=== PATIENT | female | born 1980 ===

== ENCOUNTER 2018-05-19 06:10 | Inpatient (IN) | payer MEDICAID ==
[2018-05-19 06:41] VITALS: BMI 28.5
[2018-05-19] MEDS ORDERED: Lactated Ringer's 1,000 ML IV ONE (07:45)
[2018-05-19] MEDS ORDERED: Sodium Citrate/Citric Acid 15 ml Sol PO ONE (07:45)
[2018-05-19] MEDS ORDERED: cefOXitin IV 2 gm in Dextrose 2 GM/50 ML BAG IVPB ONE (08:00)
[2018-05-19 08:24] LABS: BASO % 0.4 % (0.0-2.0); EOS # 0.1 K/uL (0.0-0.7); EOS % 1.5 % (0.0-4.0); MEAN CORPUSCULAR HEMOGLOBIN 30.8 pg (27.0-31.0); MEAN CORPUSCULAR HGB CONC 33.9 g/dL (33.0-37.0); MEAN PLATELET VOLUME 9.2 fL (7.2-11.7); MONO # 0.4 K/uL (0.0-0.8); MONO % 5.3 % (0.0-10.0); NEUT # 5.2 K/uL (1.8-7.0); NEUT % 66.8 % (50.0-75.0); RBC 3.89 Mil/uL (3.80-5.20); RED CELL DISTRIBUTION WIDTH 14.2 % (11.5-14.5); WHITE BLOOD COUNT 7.8 K/uL (4.8-10.8)
[2018-05-19 08:35] LABS: ALB/GLOB RATIO 1.1 (1.0-2.1); ALBUMIN 3.6 g/dL (3.5-5.0); ALT/SGPT 14 U/L (9-52); AST/SGOT 17 U/L (14-36); BLOOD UREA NITROGEN 9 mg/dL (7-17); CALCIUM 9.1 mg/dl (8.6-10.4); GFR AFRICAN-AMERICAN > 60; GFR NON-AFRICAN AMERICAN > 60
--- NOTE | 2018-05-19 08:37 | OBADHP ---
Datetime: 05/19/2018 08:26 Admit Comment, IP Provider: @ 39+ wks GA with prior cesearen section here for scleuld angel n section, dneis lof, vb, ct,x +FM. pt also desries btl OB: FT 7lbs , CxS 8lbs 2 ounces with 9 months pneumonia [employer]: denies PMH: deines PSH: CxS FHX: non contribotry MEDS: PNV NKDA SHX: negative eoth/otbacco/drugs A/P @ 40.1 wks GA for scheleuld cxs and btl admit to L+D npo, ivf admission labs cont toco adn efm analgiesia prn pre op anbitics abdomina prep foelly to gravity Pelvic Type - PN: Adequate Extremities - PN: Normal Abdomen - PN: Normal Back - PN: Normal Breast - PN: Not Done Lungs - PN: Normal Heart - PN: Normal Thyroid - PN: Not Done Neurologic - PN: Normal HEENT - PN: Normal General - PN: Normal FHR - Baseline A Provider: 125 Membranes, Provider: Intact Contraction Comments Provider: irreuglar Gestation - Est Wks by US: 40.1 IP Hx Assessment: The History has been Reviewed and is Current Vital Signs Provider: Reviewed; Within Normal Limits IP Chief Complaint: Suspected ruptured membranes NICHD Variability Prov Fetus A: Moderate 6-25bpm FHR Category Provider Fetus A: Category I NICHD Decel Fetus A IP Provider: None Genitourinary Exam: Normal DTRs - PN: Normal EGA AdmitDate IP: 39.1 IP Adm Impression: Term, intrauterine IP Admit Plan: Admit to unit; Initiate Section protocol
[2018-05-19 09:02] LABS: URINE BILIRUBIN NEGATIVE (NEGATIVE); URINE BLOOD NEGATIVE (NEGATIVE); URINE CLARITY Hazy (Clear); URINE COLOR Yellow (YELLOW); URINE GLUCOSE (UA) NORMAL (Normal); URINE LEUKOCYTE ESTERASE 1+ Leu/uL (Negative); URINE PROTEIN NEGATIVE (NEGATIVE); URINE UROBILINOGEN NORMAL mg/dL (0.2-1.0)
[2018-05-19 09:03] LABS: SQUAMOUS EPITHIAL 8 /hpf (0-5); URINE BACTERIA RARE (<OCC)
[2018-05-19] MEDS ORDERED: Oxytocin 20 units in LR 2,000 ML IV ONE (10:10)
[2018-05-19] MEDS ORDERED: Sodium Citrate/Citric Acid 15 ml Sol ONE (10:10)
[2018-05-19] MEDS ORDERED: cefOXitin IV 2 gm in Saline 2 GM/50 ML BAG IVPB ONE (10:10)
[2018-05-19] MEDS ORDERED: Morphine 1 mg/ml preservative-free Inj(Duramorph) ONE (12:09)
[2018-05-19] MEDS ORDERED: Phenylephrine 10 mg/ml Inj ONE (13:02)
--- NOTE | 2018-05-19 18:44 | OBDS ---
DELIVERY PERSONNEL Delivery Doctor: Mckenzie GONZALESulator: Terry Sultana RN Anesthesiologist: PASQUALE MATERNAL INFORMATION Delivery Anesthesia: Spinal Estimated Blood Loss (ml): 600 Placenta Cultured: No Maternal Complications: Other Other Maternal Complications: AMA, PREVIOUS C/S, H/O ANEMIA, H/O RN Comments: FOR REPEAT C/S AND BTL Provider Comments: Repeat LTC C/S with BTL without complications and with delivery of a viable femal e with Apgars 9/9 and BW 6lbs, 11 oz. Pt and both tolerated the procedure well and both left the OR in Stable and Satisfactory c ondition. LABOR SUMMARY EDC: 05/25/2018 00:00 No. Babies in Womb: 1 Attempted: No Labor Anesthesia: None LABOR INFORMATION Reason for Induction: Not Applicable Onset of Labor: 05/19/2018 05:00 Oxytocin: N/A Group B Beta Strep: Done, Result Unknown Antibiotics # of Doses: 1 Antibiotics Time of Last Dose: 10:17AM Steroids Given: None Reason Steroids Not Administered: Not Applicable MEMBRANES Membranes Rupture Method: Artificial Rupture of Membranes: 05/19/2018 12:42 Length of Rupture (hrs): 0.02 Amniotic Fluid Color: Clear Amniotic Fluid Amount: Moderate Amniotic Fluid Odor: Normal STAGES OF LABOR Stage 3 hrs: 0 Stage 3 min: 1 Total Time in Labor hrs: 7 Total Time in Labor min: 44 CSECTION DELIVERY Primary Indication: Repeat Elective Other Primary Indication: Multiparity CSection Urgency: Elective CSection Incidence: Repeat Labor: N/A Elective: Elective CSection Incision: Lower Uterine Transverse Other Sterilization Procedure: Bilateral tubal excision with Enseal Uterine Closure: Single-layer closure BABY A INFORMATION Delivery Date/Time: 05/19/2018 12:43 Method of Delivery: Born in Route : No : N/A Forceps: N/A Vacuum Extraction: N/A Shoulder Dystocia : No SHOULDER DYSTOCIA BABY A Infant Delivery Date/Time: 05/19/2018 12:43 PRESENTATION/POSITION BABY A Presentation: Cephalic Breech Presentation: N/A PLACENTA INFORMATION BABY A Placenta Delivery Time : 05/19/2018 12:44 Placenta Method of Delivery: Manual Removal Placenta Status: Delivered SCORES BABY A Heart Rate 1 min: >100 bpm Resp Effort 1 min: Good Cry Reflex Irritability 1 min: Cough or Sneeze or Pulls Away Muscle Tone 1 min: Active Motion Color 1 min: Body [place], Extremities Blue Resuscitation Effort 1 min: Tactile Stimulation SCORE 1 MIN: 9 Heart Rate 5 min: >100 bpm Resp Effort 5 min: Good Cry Reflex Irritability 5 min: Cough or Sneeze or Pulls Away Muscle Tone 5 min: Active Motion Color 5 min: Body [place], Extremities Blue Resuscitation Effort 5 min: Tactile Stimulation SCORE 5 MIN: 9 INFORMATION BABY A Gestational Age at Delivery: 39.1 Gestational Status: Term Outcome : Liveborn Condition : Stable Infant Sex: Female IDENTIFICATION/MEDS BABY A ID Band Number: [id number] ID Band Location: Left Leg; Left Arm Sensor Applied: Yes Sensor Number: [id number] Sensor Location : Cord Clamp WEIGHT/LENGTH BABY A Birthweight (gms): 3540 Infant Weight (lb): 7 Infant Weight (oz): 13 Infant Length Inches: 19.75 Infant Length cms: 50.2 CORD INFORMATION BABY A No. Cord Vessels: 3 Nuchal Cord : N/A Cord Blood Taken: Yes Suction: None; Mouth
[2018-05-20] MEDS: Oxycodone/Acetaminophen 5/325 mg Tab PO PRN ×4 (05:35→20:48)
[2018-05-20 08:48] LABS: MEAN CELL VOLUME 90.9 fL (81.0-99.0); MEAN CORPUSCULAR HEMOGLOBIN 31.5 pg (27.0-31.0); MEAN CORPUSCULAR HGB CONC 34.7 g/dL (33.0-37.0); RBC 2.8 Mil/uL (3.80-5.20); RED CELL DISTRIBUTION WIDTH 14.3 % (11.5-14.5); WHITE BLOOD COUNT 9.1 K/uL (4.8-10.8)
[2018-05-20 08:54] LABS: HEMOGLOBIN 8.8 g/dL (11.0-16.0)
[2018-05-20] MEDS: Simethicone 80 mg Chewtab PO SCH ×4 (10:54→22:26)
[2018-05-20] MEDS: Prenatal Multivit/Folic Acid/Iron Tab PO SCH (10:54)
--- NOTE | 2018-05-20 14:59 | OBPPN ---
Datetime: 05/20/2018 10:00 PP Pain Prov: Within normal limits PP Nausea Prov: Denies PP Flatus Prov: Yes PP BM Prov: No PP Breasts Prov: Not Done PP Heart Prov: Normal PP Lungs Prov: Normal PP Abdomen/Uterus Prov: Normal PP Lochia Prov: Normal PP Vulva/Perineum Prov: Not Done PP CVA Tenderness Prov: Normal PP Extremities Prov: Normal PP C/S Incision Prov: Normal PP Progress Prov: Abnormal PP Comments Phys Exam Prov: Incision clean, dryand intact PP Impression Prov: Normal progression; difficulties; Pain PP Plan Prov: Continue present management; consult PP Progress Note Prov: POD # 1 VSS,Afebrile Incision Healing well Not ambulating yet and drinking very little water and counseled to do so C/O of pain and advised to request pain medication as needed Advised of Acute Anemia and asymptomatic Started on Fe and Colace daily Advance care consult IP PP Procedures: None
[2018-05-21] MEDS: Prenatal Multivit/Folic Acid/Iron Tab PO SCH (09:17)
[2018-05-21] MEDS: Simethicone 80 mg Chewtab PO SCH ×4 (09:17→22:00)
[2018-05-21] MEDS: Oxycodone/Acetaminophen 5/325 mg Tab PO PRN ×3 (09:18→19:59)
--- NOTE | 2018-05-21 10:28 | OBPPN ---
Datetime: 05/21/2018 10:24 PP Pain Prov: Within normal limits PP Nausea Prov: Denies PP Flatus Prov: Yes PP Impression Prov: Normal progression PP Plan Prov: Continue present management PP Progress Note Prov: pt was seen at bed side, pain under control,no n/v, tolerating deit, voiding, min ocha, flatus + pod#2 s/p c/s cont post op care cont psin ma encourage ambulation
--- NOTE | 2018-05-22 08:57 | OBDCSUM ---
Datetime: 05/22/2018 08:34 Discharged to, Provider: Home Follow up at, Provider: [facility]hew Disch Instr Activity: Normal activity Disch Instr Diet: Regular Discharge Instructions, Provider: Specific instructions as noted Discharge Diagnosis, Provider: Term Delivered Discharge Time: 05/22/2018 11:30 Follow up in weeks, Provider: 05-26-18 Disch Referrals: None Discharge Instruct Comment, Prov: Increase water in Fiber in diet Disch Activity Restrictions: No lifting; Minimize stair-climbing; No sexual activity; Nothing in vag levy - [place], tampons, douche Discharge Comment, Provider: POD # 3 S/P RC/S with BTL Acute Anemia and Asymptomatic C/O of Constipation but drinks very little water Problems and will order a Breast PUMP D/ home with instructions and Rx for Percocet, Motrin, Fe and Colce Advised to increas water in Fiber in diet Will F/Up at her Clinic in 7-10 days for staple removal. Discharge Diagnosis Prov Other: Asymptomatic Acute Anemia Contraception after Delivery: Tubal Ligation
[2018-05-22] MEDS: Prenatal Multivit/Folic Acid/Iron Tab PO SCH (09:12)
[2018-05-22] MEDS: Simethicone 80 mg Chewtab PO SCH (09:12)
[2018-05-22 17:01] VITALS: BP 101/62; PULSE 76; RESP 18; TEMP 98; O2SAT 97
== END 2018-05-22 12:20 | disposition home or self-care (01) | DRG 370 ==
LOC: C.EROB 06:10 → C.4D 07:34 → C.4M 15:11
PROVIDERS: ADMIT Obstetrics & Gynecology; ATTEND Obstetrics & Gynecology
PROC: 10D00Z1 Extraction of Products of Conception, Low, Open Approach (ICD-10-PCS; principal; 2018-05-19)
PROC: 0UL70ZZ Occlusion of Bilateral Fallopian Tubes, Open Approach (ICD-10-PCS; 2018-05-19)
DX: O34.219 Maternal care for unspecified type scar from previous cesarean delivery (principal); O99.02 Anemia complicating childbirth; D64.9 Anemia, unspecified; Z3A.39 39 weeks gestation of pregnancy; Z37.0 Single live birth; Z30.2 Encounter for sterilization